=== PATIENT | female | born 1955 | race Caucasian/White ===

== ENCOUNTER → 2016-05-11 | Outpatient (CLI) | payer MEDICARE, OTHER ==
[~2016-05-11] MED LIST: ADVAIR 2501 DISK W/D PO; ALBUTEROL17 GM INH; ALBUTEROL2.5 MG/0.5 IH; AMBIEN; AMITRIPTYLINE H25 MG PO; ATENOLOL; BACTRIM DS TABL1 TA1 PO; BAYER ASPIRIN325 M1 PO; FISH OIL 1,0001 CA2 PO; HCTZ PO; HYDROCHLOROTHIAZIDE PO; LEVAQUIN; LISINOPRIL10 MG PO; LYSINE500 M1 PO; MACHINE; MEDROL4 MG/DOSE- PO; METHIMAZOLE5 MG PO; OMEPRAZOLE20 M1 PO; PAROXETINE HCL20 MG PO; PAXIL; PREDNISONE PO; PROPRANOLOL PO; SIMVASTATIN80 MG PO; TAPAZOLE10 MG; TAPAZOLE10 MG PO; TESSALON200 MG PO; TYLENOL325 M1 PO
--- NOTE | ~2016-05-11 | US77 ---
[facility] A Service of [facility] & [facility] RADIOLOGY TEXT RESULTS PATIENT: BLAYNE JOSEPH LOCATION: [facility] : 55 UNIT #: [id number] AGE: [address]: Malik Azar MD SEX: F ORDER DR: [id number] [facility] [address] [facility] [place] [place], [place] [address] [id number] O MR#: [id number] Acc #: [id number] NAME: BLAYNE JOSEPH : 1955 SEX: F STUDY DATE/TIME: 05/11/2016 13:30 UNIT: [facility] ROOM: STUDY DESCRIPTION: US Kidney Bilateral Complete Attending Physician: Malik Azar M.D. Referring Physician: Malik Azar M.D. Ordering Physician: Malik Azar M.D. Primary Care Physician: Latoya Ashford MEDICAL IMAGING REPORT This report is preliminary unless electronic signature is present EXAM Renal ultrasound 05/11/2016 HISTORY Chronic kidney disease stage III and hypertension. FINDINGS Right kidney measured 7.2 cm while the left kidney measured 11.7 cm in longitudinal dimensions. There is no evidence of hydronephrosis or nephrolithiasis. There is a 1.2 cm simple cyst on the right kidney. No solid mass lesions are identified. There is increased right renal cortical echogenicity and poor corticomedullary differentiation consistent with right renal atrophy. Normal cortical echogenicity is seen on the left kidney. The bladder was empty for the exam and therefore poorly visualized. IMPRESSION 1. Atrophic right kidney demonstrating poor corticomedullary differentiation. No evidence of hydronephrosis. Right renal cyst. 2. Normal-appearing left kidney. 3. The bladder was empty for the exam and therefore poorly visualized. Dictated by... George Bernardo M.D. THIS IS AN ELECTRONICALLY VERIFIED REPORT George Bernardo M.D. at 05/12/2016 5:03 PM KRT/christopher TD: 05/12/2016 08:19 JOB #: [id number] MEDICAL IMAGING REPORT [facility] A Service of [facility] & [facility] RADIOLOGY TEXT RESULTS PATIENT: BLAYNE JOSEPH LOCATION: [facility] #: [id number] : 55 UNIT #: [id number] AGE: [address]: Malik Azar MD SEX: F ORDER DR: COPY
[2016-05-11 13:15] LABS: BASOPHIL# 0.1 X10e3 (0-0.3); BASOPHIL% 0.9 % (0-2.5); EOSINOPHIL# 0.2 X10e3 (0-0.7); EOSINOPHIL% 3.7 % (0.0-7.0); HEMATOCRIT 38.3 % (35.0-45.0); HEMOGLOBIN 12.7 gm/dL (12.0-16.0); LYMPHOCYTE# 1.9 X10e3 (1.0-3.5); LYMPHOCYTE% 27.7 % (17.0-45.0); MEAN CELL VOLUME 91.8 FL (83-96); MEAN CORPUSCULAR HEMOGLOBIN 30.5 PG (28-34); MEAN CORPUSCULAR HGB CONC 33.2 g/dL (30-36); MEAN PLATELET VOLUME 7.5 FL (6.5-11.5); MONOCYTE# 0.5 X10e3 (0-1.0); MONOCYTE% 6.9 % (3.0-12.0); NEUTROPHIL# 4.2 X10e3 (1.5-7.1); NEUTROPHIL% 60.8 % (40-75); PLATELET COUNT 264 X10e3 (140-420); RED BLOOD COUNT 4.17 X10e (3.90-5.30); RED CELL DISTRIBUTION WIDTH 13.3 % (11.0-15.5); WHITE BLOOD COUNT 6.8 X10e3 (4.0-10.5)
[2016-05-11 13:18] LABS: DIFF IND NO
[2016-05-11 13:57] LABS: ALBUMIN SERUM 3.7 g/dL (3.5-5.0); BILIRUBIN,TOTAL 0.7 mg/dL (0.2-2.0); BUN/CREATININE RATIO 14.16; CALCIUM SERUM 9.3 mg/dL (8.4-10.2); CREATININE SERUM 1.2 mg/dL (0.6-1.4); GLOM FILT RATE Estimated 48.5 mL/min (>60); POTASSIUM 3.8 mmol/L (3.5-5.1); PROTEIN TOTAL SERUM 6.5 g/dL (6.0-8.3)
[2016-05-11 14:01] LABS: URINE APPEARANCE CLEAR; URINE BILIRUBIN NEG (NEG); URINE BLOOD 1+ (NEG); URINE COLOR YELLOW; URINE GLUCOSE NEG (NEG); URINE KETONE TRACE (NEG); URINE LEUKOCYTE ESTERASE 1+ (NEG); URINE NITRATE NEG (NEG); URINE PROTEIN NEG (NEG); URINE SPECIFIC GRAVITY 1.022 (1.003-1.035); URINE UROBILINOGEN 0.2 MG/DL (NEG)
[2016-05-11 14:05] LABS: URINE BACTERIA AUWI NEG (NEGATIVE); URINE SQUAMOUS EPITHELIAL CELL FEW /[HPF]
[2016-05-11 14:07] LABS: URINE SOURCE CLEAN CATCH
== END | disposition home or self-care (01) ==
LOC: CGUS 12:40
PROVIDERS: Internal Medicine Nephrology
DX: N18.3 Chronic kidney disease, stage 3 (moderate) (principal); E55.9 Vitamin D deficiency, unspecified; N26.1 Atrophy of kidney (terminal); N28.1 Cyst of kidney, acquired
CPT/HCPCS: 36415; 76770; 80053; 81003; 82306; 85025